=== PATIENT | male | born 1960 | race Caucasian/White ===

== ENCOUNTER 2016-05-08 06:37 | Inpatient (IN) | payer OTHER ==
[2016-05-02 16:52] LABS: ASCORBIC ACID (UR NOT ORDER) NEG (NEG); BILIRUBIN, URINE NEGATIVE (NEG); KETONE, URINE NEGATIVE (NEG); LEUKOCYTE ESTERASE(NOT OR NEG (NEG); WBC (NOT ORDERED) (RFLEX) 2 (0-5)
[2016-05-02 16:59] LABS: BASOPHILS 0.2 %; BASOPHILS ABSOLUTE 0.01 10/3/uL (0.0-0.16); EOSINOPHILS 4.2 %; EOSINOPHILS ABSOLUTE 0.21 10/3/uL (0.0-0.53); HEMATOCRIT 45.7 % (40.0-51.0); HEMOGLOBIN 15.2 g/dL (13.6-17.8); IMMATURE GRANULOCYTES 0.2 %; IMMATURE GRANULOCYTES ABSOLUTE 0.01 10/3/uL (0.0-0.11); LYMPHOCYTES 28.1 %; LYMPHOCYTES ABSOLUTE 1.42 10/3/uL (0.67-4.30); MANUAL DIFF NO %; MEAN CORPUS HGB CONC 33.3 g/dL (32.0-36.0); MEAN CORPUSCULAR VOLUME 90.3 fL (80-100); MEAN PLATELET VOLUME 9.8 fL (9.2-13.0); MONOCYTES 10.9 %; MONOCYTES ABSOLUTE 0.55 10/3/uL (0.21-1.20); NEUTROPHILS 56.4 %; NEUTROPHILS ABSOLUTE 2.85 10/3/uL (2.02-8.40); PLATELET COUNT 261 10/3/uL (150-400); RED CELL COUNT 5.06 10/6/uL (4.7-6.1); WHITE BLOOD CELLS 5.1 10/3/uL (4.5-10.5)
[2016-05-02 17:02] LABS: PROTIME (NOT ORD) 13.3 SEC (12.0-14.5)
[2016-05-02 17:08] LABS: A/G RATIO 1.2 (0.7-1.9); ALBUMIN 4.2 G/DL (3.5-5.0); BUN (BLOOD UREA NITROGEN) 9 MG/DL (6-23); CALCIUM, SERUM 9.4 MG/DL (8.5-10.4); CHLORIDE, SERUM 110 MMOL/L (96-112); CO2 (CARBON DIOXIDE) 25 MMOL/L (24-34); CREATININE 0.82 MG/DL (0.70-1.30); GFR AFRICAN AMERICAN 116 ML/MIN (>=60); GFR NON AFRICAN AMERICAN 100 ML/MIN (>=60); GLOBULIN 3.5 G/DL (2.5-4.1); GLUCOSE, SERUM 121 MG/DL (60-99); POTASSIUM, SERUM 4.2 MMOL/L (3.5-5.3); SGOT(AST) 24 U/L (5-40); SGPT(ALT) 54 U/L (5-65); SODIUM, SERUM 144 MMOL/L (135-148); TOTAL BILIRUBIN 0.8 MG/DL (0-1.2); TOTAL PROTEIN 7.7 G/DL (6.0-8.5)
[2016-05-02 17:11] LABS: ALKALINE PHOSPHATASE 111 U/L (45-117)
--- NOTE | ~2016-05-08 | OP ---
Record Of Operation [facility] [address] [place]. 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 POSTOPERATIVE DIAGNOSIS: Negative subscap insufficiency and otherwise as above. PROCEDURES: 1. Right revision of resurfacing. 2. Total shoulder arthroplasty. Subscapularis exploration and repair. SURGEON: Shashank Richter M.D. COMPLICATIONS: None. ANESTHESIA: General endotracheal with regional block per Anesthesia. ESTIMATED BLOOD LOSS: 100. FLUIDS: Crystalloid. INDICATIONS: This 55-year-old male had an open instability procedure and then ended up having arthritis years ago. He was treated with onlay type resurfacing and began having pain from instability type symptoms. We discussed risks, benefits, and alternatives. The patient verbalized understanding and wished to proceed with operative intervention. PROCEDURE IN DETAIL: The patient was induced in the supine position. He was taken to the beach-chair position with care to maintain the cervical lordosis. A time-out protocol was enforced. Ancef was administered. The deltopectoral approach was utilized lateral to the previous medial scar. We dissected through the scarred planes and found the deltopectoral interval. We dissected the subdeltoid plane and placed a Paiz retractor. There was dense scarring in the subcoracoid region. The cuff looked okay from outside appearance. We found the biceps groove and did a peel technique on the subscap. It was somewhat scarred at the cranial 3rd but it seemed to be in reasonably good shape especially the inferior caudal two-thirds. We released the capsule off the neck of the humerus. The implant was visualized. We used a saw after checking the extramedullary angle to remove with osteotomes and a saw at the implant. We then freshened the neck cut. There was some bone posteriorly which we took off. This was a very large head. We sized it to a 58. We sequentially reamed up to a 15 distally and a 15 proximal broach. We then left the broach into position for subscapularis exploration. There was dense scarring and the coracohumeral ligament was released. We dissected with [employer] and we were able to dissect a plane between the straps and the subscapularis. The axillary nerve was able to be palpated. We used a carbon fiber skin to protect the axillary nerve while we released with the Bovie of the inferior capsule. We then placed the anterior Record Of Operation [facility] [address] [place]. [address] NAME: MADELAINE DOOLEY : 62 STATUS : ADM IN PAT#: [id number] AGE: 55 ADM/REG DATE : 05/08/16 MR#: [id number] REPORT SERV DATE: 05/08/16 DICTATED BY: SHASHANK RICHTER DATE: 05/08/16 REPORT STATUS : Draft TRANSCRIBED BY: MODL DATE: 05/08/16 Bankart retractor. The labrum was very hypertrophic and has had previous sutures in it. We removed that circumferentially and released the glenoid circumferentially. There was no cartilage left on the glenoid. We used a Biomet glenoid and machined the glenoid with the drill pegs for peripheral cementation with a hybrid approach for the central fixation. Large glenoid was placed without complication. We then turned back to the humeral side. We press fit a 15 stem with a 58 head on the D setting and impacted that after placing a fiber wire through drill holes and around the stem. We then did multiple Dayday-Tam sutures into the best portions of the subscapularis and closed the rotator interval laterally with the arm at 0 neutral. We checked there was minimal posterior translation and I could not detect any anterior instability. We then oversewed the subscapularis again with fiber wires. We irrigated copiously with tranexamic acid and pulsatile lavage and closed the wound in layers. The patient tolerated the procedure well and was taken to the PACU in stable condition. POSTOPERATIVE PLAN: Elbow range of motion, pendulums only. Subscap protection for six weeks. SALLIE/CECY Shashank Richter M.D. / [id number] CC: Shashank Richter M.D.
[~2016-05-08 06:37] MED LIST: COZ50 PO; IBU800 PO; LIOR10 PO; LIVALO2 MG PO; ZETIA PO
[2016-05-09 05:01] LABS: HEMOGLOBIN 12.9 g/dL (13.6-17.8)
[2016-05-09 05:07] LABS: HEMATOCRIT 37.8 % (40.0-51.0)
[2016-05-09 05:13] LABS: BUN (BLOOD UREA NITROGEN) 11 MG/DL (6-23); CALCIUM, SERUM 8.7 MG/DL (8.5-10.4); CHLORIDE, SERUM 110 MMOL/L (96-112); CO2 (CARBON DIOXIDE) 26 MMOL/L (24-34); CREATININE 0.78 MG/DL (0.70-1.30); GFR AFRICAN AMERICAN 119 ML/MIN (>=60); GFR NON AFRICAN AMERICAN 102 ML/MIN (>=60); POTASSIUM, SERUM 4.2 MMOL/L (3.5-5.3); SODIUM, SERUM 145 MMOL/L (135-148)
[2016-05-09 05:17] LABS: GLUCOSE, SERUM 166 MG/DL (60-99)
[2016-05-09] MEDS ORDERED: ASA5GR PO (10:05)
[2016-05-09] MEDS ORDERED: PERCOCET 7.5/321 TAB PO (10:06)
[2016-05-09] MEDS ORDERED: PR25 PO (10:06)
== END 2016-05-09 12:34 | disposition home or self-care (01) | DRG 483 ==
LOC: SDC/OF 06:37 → PACU 11:53 → 3SO 14:43
PROVIDERS: Orthopaedic Surgery Sports Medicine
PROC: 0RRJ0JZ Replacement of Right Shoulder Joint with Synthetic Substitute, Open Approach (ICD-10-PCS; principal; 2016-05-08 07:30)
DX: T84.89XA Other specified complication of internal orthopedic prosthetic devices, implants and grafts, initial encounter (principal); E66.01 Morbid (severe) obesity due to excess calories; E11.9 Type 2 diabetes mellitus without complications; Z68.37 Body mass index [BMI] 37.0-37.9, adult
CPT/HCPCS: 36415; 73030-RT; 80048; 80053; 81001; 82962; 85014; 85018; 85025; 85610; 85730; 86850; 86900; 86901; 87641; 88300; 88304; 88311; 93005; 97110-GP; 97116-GP; 97161-GP; A9270-GY; C1776; J0690; J2250; J2270; J2405; J2710; J2795; J3010; J3370